=== PATIENT | male | born 1955 | race Caucasian/White ===

== ENCOUNTER 2017-08-20 09:09 | Emergency (ER) | payer OTHER ==
[~2017-08-20] VITALS: Ht 193 cm; Wt 62.0 kg
[~2017-08-20 09:09] MED LIST: Z.0.NO CURRENT MEDS
[2017-08-20 09:14] VITALS: BP 211/90; PULSE 79; RESP 16; TEMP 97.8; O2SAT 99
--- NOTE | 2017-08-20 09:29 | PD ---
HPI Chief Complaint: Musculoskeletal Complaint Time Seen by Provider: 09:19 Travel History International Travel<30 days: No Contact w/Intl Traveler<30days: No Traveled to known affect area: No History of Present Illness HPI The patient is a 61-year-old male who presents to the emergency department for back pain. The patient states he developed back pain and shoulder pain is located near the left scapula yesterday while at work. The pain is located just medial to the left scapula, radiates up and down the back, is worse with palpation and certain types of movement. He also states the pain occasionally radiates down the left arm and is associated with left arm numbness. He denies any weakness of left upper extremity. He denies any company chest pain, shortness of breath, neck pain, nausea, vomiting, or headache. The patient's blood pressure was noted be elevated in the emergency department, however, he denies any history of hypertension. He does drink alcohol on a daily basis, currently takes no medications. He denies any history of CAD, TIA, CVA, hypertension, hyperlipidemia, or diabetes. He does have a history of tobacco use. He does not currently have a primary physician. Symptoms are moderate, worsen movement, slightly alleviated at rest. The patient works at a [employer] and carries heavy boxes throughout the day. PFSH Past Medical History Diminished Hearing: No Tetanus Vaccination: > 5 Years Influenza Vaccination: No Past Surgical History Eye Surgery: Yes (CATERACT) Tonsillectomy: Yes (1962) Other Surgery: Yes (LT TESTICLE 1964) Social History Alcohol Use: Yes (4 BEERS DAILY) Tobacco Use: Yes (1 PK DAILY) Substance Use: No Allergies-Medications (Allergen,Severity, Reaction): Coded Allergies: No Known Allergies (Verified , 08/20/17) Reported Meds & Prescriptions Reported Meds & Active Scripts Active No Active Prescriptions or Reported Medications Review of Systems Except as stated in HPI: all other systems reviewed are Neg General / Constitutional: No: Fever HENT: No: Headaches, Neck Pain Cardiovascular: No: Chest Pain or Discomfort Respiratory: No: Shortness of Breath Gastrointestinal: No: Nausea, Vomiting, Abdominal Pain Musculoskeletal: Positive: Pain, No: Limited ROM, Weakness Neurologic: Positive: Paresthesia Physical Exam Narrative GENERAL: Awake, alert, pleasant 61-year-old male who appears his stated age and is in no acute respiratory distress. SKIN: Focused skin assessment warm/dry. HEAD: Atraumatic. Normocephalic. EYES: Pupils equal and round. No scleral icterus. No injection or drainage. ENT: No nasal bleeding or discharge. Breath smells of alcohol. NECK: Trachea midline. No JVD. CARDIOVASCULAR: Regular rate and rhythm. No murmur appreciated. RESPIRATORY: No accessory muscle use. Clear to auscultation. Breath sounds equal bilaterally. MUSCULOSKELETAL: Strength with flexion and extension elbow is 5 out of 5. Abduction is 5 out of 5 of the left shoulder, however, reproduces symptoms. Positive left radial pulse. Intrinsic hand muscles are intact. Back: Patient is tender to palpation over the paravertebral muscle of thoracic region as well as the left scapula muscles. Pain is elicited with active abduction of the left shoulder as well as extension of the shoulder against resistance. NEUROLOGICAL: Awake and alert. No obvious cranial nerve deficits. Motor grossly within normal limits. Normal speech. Sensation is intact with radial, median, and ulnar distribution of the left upper extremity. PSYCHIATRIC: Appropriate mood and affect; insight and judgment normal. Data Data Last Documented VS Vital Signs Date Time Temp Pulse Resp B/P (MAP) Pulse Ox O2 Delivery O2 Flow Rate FiO2 08/20/17 09:14 97.8 79 16 211/90 (130) 99 Orders Orders Ketorolac Inj (Toradol Inj) (08/20/17 09:30) Orphenadrine Inj (Norflex Inj) (08/20/17 09:30) Electrocardiogram (08/20/17 ) MDM Medical Decision Making Medical Screen Exam Complete: Yes Emergency Medical Condition: Yes Medical Record Reviewed: Yes Interpretation(s) EKG reveals normal sinus rhythm with a rate of 61. No ischemic changes or ectopy noted. Differential Diagnosis Differential diagnosis includes musculoskeletal pain, scapula strain, shoulder strain, back strain, radiculopathy, atypical ND, thoracic dissection, aneurysm. Narrative Course EKG was ordered and interpreted. The patient was administered Toradol and Norflex IM. EKG is unremarkable. The patient was discharged on anti- inflammatories and muscle relaxers. He is advised to follow-up with his primary physician, apply heat to the affected area, and return if symptoms worsen or progress. Diagnosis Primary Impression: Musculoskeletal back pain Patient Instructions: General Instructions Additional Instructions: Medications as directed. Follow-up with your primary physician. Return if symptoms worsen or progress. Apply heat to the affected area. Med/Other Pt SpecificInfo: Prescription(s) given Scripts Cyclobenzaprine (Flexeril) 10 Mg Tab 10 MG PO TID for Muscle Spasm, #30 TAB 0 Refills Prov: Matthew Lopez MD 08/20/17 Ibuprofen (Ibuprofen) 400 Mg Tab 400 MG PO Q6H Y for PAIN SCALE 1 TO 10, #20 TAB 0 Refills Prov: Matthew Lopez MD 08/20/17 Disposition: 01 DISCHARGE HOME Condition: Stable Matthew Lopez MD Aug 20, 2017 09:29
[2017-08-20] MEDS ORDERED: ORPHENADRINE INJ 60 MG/2 ML AMP IM ONE (09:30)
[2017-08-20] MEDS ORDERED: KETOROLAC TROMETHAMINE 60 MG/2 ML (IM) VIAL IM ONE (09:30)
[2017-08-20] MEDS ORDERED: IBUP400T20 PO (09:40)
[2017-08-20] MEDS ORDERED: CYCL1TAB29 PO (09:40)
[2017-08-20 09:46] VITALS: BP 171/80; PULSE 67; RESP 16; O2SAT 98
--- NOTE | 2017-08-20 17:02 | EKG ---
Date Performed: 08/20/2017 Time Performed: 09:37:02 PTAGE: 61 years EKG: Sinus rhythm NORMAL ECG Since PREVIOUS TRACING , no significant change noted PREVIOUS TRACIN04/02/2011 10.39 DOCTOR: Elly Trivedi Interpretating Date/Time 08/20/2017 17:01:22
== END 2017-08-20 10:02 | disposition home or self-care (01) ==
LOC: PHED 09:09
DX: M54.9 Dorsalgia, unspecified (principal); M25.512 Pain in left shoulder; R20.0 Anesthesia of skin; F17.200 Nicotine dependence, unspecified, uncomplicated
CPT/HCPCS: 93005; 96372; 99284; J1885; J2360